=== PATIENT | male | born 2000 | race Caucasian/White ===

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

== ENCOUNTER 2023-05-26 01:48 | Emergency (ER) | payer OTHER, BC ==
[2023-05-26 01:54] VITALS: BP 113/94; PULSE 78
[2023-05-26] MEDS ORDERED: Tetracaine HCl/PF 0.5% 4 ML Bottle EYERT ONE (02:01)
[2023-05-26] MEDS ORDERED: Dexamethasone/Tobramycin 0.1-0.3% Ophth Susp 2.5 ML Bottle EYERT SCH (02:30)
== END 2023-05-26 02:40 | disposition home or self-care (01) ==
LOC: KA.ED 01:48
DX: S05.01XA Injury of conjunctiva and corneal abrasion without foreign body, right eye, initial encounter (principal); Z91.010 Allergy to peanuts; W20.8XXA Other cause of strike by thrown, projected or falling object, initial encounter; Y92.812 Truck as the place of occurrence of the external cause
CPT/HCPCS: 99283; A9270-GY; J3490